=== PATIENT | female | born 1945 | race Caucasian/White ===

== ENCOUNTER 2017-08-21 00:07 | Inpatient (IN) | payer OTHER, MEDICARE ==
[2017-08-21] VITALS (8 sets, daily range): BP systolic 106–143; BP diastolic 51–73
[~2017-08-21] VITALS: Ht 160 cm; Wt 56.7 kg
--- NOTE | 2017-08-21 00:50 | NUR ---
PT PRESENTS TO THE ED VIA [facility] WITH A C/O ALOC POST CONSUMING AN UNKOWN AMOUNT OF BENEDRY AT AN UNKNOWN TIME TODAY. THE MOTHER REPORTS WHEN SHE CAME HOME FROM WORK AT 2200 THAT ROUGHLY 40 PILLS WERE MISSING FROM THE BENEDRYL BOTTLE, THE PT WAS FOUND ON THE FLOOR, AWAKE AND ALERT. THE PT IS AAO X4, SPEACH IS GARBLED BUT PER FAMILY THIS IS NORMAL. THE PT SHOWS GENERAL WEAKNESS AND IS UNABLE TO STAND ON HER OWN WITHOUT ASSISTANCE. RESP ARE EVEN AND UNLABORED, PT DENIES ANY PAIN.
[2017-08-21 00:56] LABS: PLATELET COUNT 192 x10^3mcL (130-400); RED CELL DISTRIBUTION WIDTH 13.9 % (11.5-14.5)
[2017-08-21 00:58] LABS: BASOPHIL % 0 % (0-2)
[2017-08-21 01:15] LABS: ALKALINE PHOSPHATASE 59 U/L (46-116); ALT/SGPT 23 U/L (14-59); AST/SGOT 24 U/L (15-37); BILIRUBIN TOTAL 0.66 mg/dL (0.20-1.00); CALCIUM 8.1 mg/dL (8.5-10.1); CARBON DIOXIDE 23.2 mmol/L (21-32); CHLORIDE SERUM 89 mmol/L (98-107); CREATININE SERUM 0.5 mg/dL (0.6-1.0); GFR1 > 60 mL/min; GLUCOSE SERUM 107 mg/dL (74-106); TOTAL PROTEIN, SERUM 6.5 g/dL (6.4-8.2)
[2017-08-21 01:16] LABS: ALBUMIN 3.1 g/dL (3.4-5.0)
[2017-08-21 01:18] LABS: SODIUM SERUM 122 mmol/L (136-145)
--- NOTE | 2017-08-21 01:18 | NUR ---
ASSISTED PT ONTO BED [place]
--- NOTE | 2017-08-21 02:26 | NUR ---
PT TO CT SCAN
--- NOTE | 2017-08-21 02:45 | NUR ---
PT AWAKE ALERT AND ORIENTED, RESP EVEN AND UNLABORED. NO ACUTE DISTRESS NOTED. FAMILY AT BEDSIDE. PT DENIES ANY NEEDS AT THIS TIME.
--- NOTE | 2017-08-21 02:46 | NUR ---
PROVIDED WITHN WARM BLANKET
--- NOTE | 2017-08-21 04:03 | NUR ---
PATIENT CAME FROM ER,PUT IN ROOM 204 A.MADE COMFORTABLE.
--- NOTE | 2017-08-21 04:05 | NUR ---
NEW NAME BAND APPLIED,TELE 32 ST.PATIENT ASSISTED TO RESTROOM,FLIGHT LINE MECHANIC HELP,NOT STEADY ON HER FEET,GARBLED SPEECH.DAUGHTER AT BEDSIDE,DR LO AT BEDSIDE.INTERVIEWING PATIENT.Adrien VEGA WILL ADMIT PATIENT.
--- NOTE | 2017-08-21 04:41 | NUR ---
RECEIVED PATIENT FROM ED VIA GUERNEY, PATIENT A/O X 2 CONFUSED AT TIMES, DAUGHTER AT BEDSIDE, TELE # 32 SR, IV ACCES TO LAC WNL, C/O PAIN TO ABD WILL MEDICATE ORDERED, ORIENTED PATIENT TO ROOM AND SURROUNDINGS, BED IN LOW POSITION, BED RAILS UP X 2, CALL LIGHT WITHIN REACH, WILL ENDORSE CARE TO PRIMARY NURSE BENNIE RIVERA
--- NOTE | 2017-08-21 04:52 | NUR ---
PATIENT UA SENT TO LAB,CLEAR YELLOW URINE.PATIENT WANT HER DAUGHTER WITH HER AT BEDSIDE.
--- NOTE | 2017-08-21 05:10 | NUR ---
DR LO MADE AWARE OF LACTIC ACID.
[2017-08-21 06:14] LABS: UA SPECIFIC GRAVITY <=1.005 (1.005-1.035); microscopic required? YES; urine erythrocyte 1+ (NEGATIVE)
--- NOTE | 2017-08-21 07:10 | NUR ---
PT SEEN ALERT, ORIENTED X 2, GARBLE SPEECH. PT NO COMPLAIN OF PAIN AT THIS TIME. PT BREATHING ON RA, EVEN, UNLABORED. IV SITE PATENT, INTACT. IVF INFUSING WELL.
[2017-08-21 08:38] LABS: CHOLESTEROL/HDL RATIO 1.6; MAGNESIUM 1.2 mg/dL (1.8-2.4)
[2017-08-21 08:39] LABS: T3 TOTAL 1.1 ng/mL
[2017-08-21 08:40] LABS: FREE T4 1.36 ng/dL (0.76-1.46); FREE THYROXINE INDEX 3.2 ug/dL (1.4-4.5)
--- NOTE | 2017-08-21 09:41 | NUR ---
UNABLE TO DO ECHO PT UP TO BATHROOM W/HELP.
[2017-08-21 11:12] LABS: CALCIUM 8.6 mg/dL (8.5-10.1); CHLORIDE SERUM 98 mmol/L (98-107); CREATININE SERUM 0.5 mg/dL (0.6-1.0); GFR1 > 60 mL/min; GLUCOSE SERUM 144 mg/dL (74-106); POTASSIUM SERUM 3.4 mmol/L (3.5-5.1); SODIUM SERUM 130 mmol/L (136-145)
--- NOTE | 2017-08-21 12:47 | NUR ---
DUCOLAX SUPP GIVEN PER ORDER. PT TOLERATED WELL. XANAX GIVEN PER ORDER.
--- NOTE | 2017-08-21 13:08 | NUR ---
CALLED AND MADE DR. BEAL AWARE PT'S K3.4, MG 1.2, PHOS 2.0, AND UA POSITIVE FOR [place] AND BLOOD.
--- NOTE | 2017-08-21 18:45 | NUR ---
PT REPORTED ANXIOUS AND REQUEST XANAX. WILL GIVE MED PER ORDER. PT BREATHING ON RA, EVEN, UNLABORED. IV SITE PATENT, INTACT. IVF INFUSING WELL.
--- NOTE | 2017-08-21 19:37 | NUR ---
SHIFT REASSESSMENT DONE.PATIENT ALERT AND ORIENTED,GARBLED SPEECH,NEEDS ANTICIPATED.FAMILY AT BEDSIDE,SUPPORTIVE OF CARE.PATIENT JUST HAD DULCOLAX SUPP.ROOM AIR.GEN WEAKNESS.AMBULATE WITH ASSIST.NS AT 100 CC/ HOUR LAC.TELE 32 SR./ST.SKIN INTACT.SCD ORDERED.VOIDING BRP ASSIST.WILL HAVE ATIVAN TONIGHT RTC Q 8 HOURS.BED ALARM ON FOR SAFETY.CALL LIGHT IN REACH.
--- NOTE | 2017-08-21 22:40 | NUR ---
PATIENT GIVEN ALL PM MEDS.GRAND SON AT BEDSIDE FOR TONIGHT.CALL LIGHT IN REACH.
--- NOTE | 2017-08-22 00:14 | NUR ---
GRANDSON REMINDED HE CAN STAY,ASSIST WITH ADLS OF GRANDMA,NOT TO SLEEP ALSO IN THE OTHER BED.PATIENT CHECKED AT INTERVALS,DENIES PAIN.
--- NOTE | 2017-08-22 03:07 | NUR ---
NEW IV SITE LEFT UPPER ARM 20 GUAGE WITH GOOD BLOOD RETURN,IVF CONNECTED.NS AT 100 CC/ HOUR.
[2017-08-22 06:08] VITALS: BP 130/59
--- NOTE | 2017-08-22 06:11 | NUR ---
PATIENT ATIVAN PO GIVEN,WANTING HER XANAX,REMINDED IT WILL BE GIVEN NEXT SHIFT.PATIENT IVF NS AT 100 CC/ HOUR.IV SITE STILL INTACT AND PATENT.WILL ENDORSE TO NEXT SHIFT.
[2017-08-22 06:16] LABS: BASOPHIL % 0.4 % (0-2); PLATELET COUNT 167 x10^3mcL (130-400); RED CELL DISTRIBUTION WIDTH 14.2 % (11.5-14.5)
--- NOTE | 2017-08-22 06:26 | NUR ---
DR VIZCAINO SEEN PATIENT NOW,NEW CONSULT.
[2017-08-22 06:38] LABS: CALCIUM 8.1 mg/dL (8.5-10.1); CHLORIDE SERUM 100 mmol/L (98-107); CREATININE SERUM 0.4 mg/dL (0.6-1.0); GFR1 > 60 mL/min; GLUCOSE SERUM 108 mg/dL (74-106); MAGNESIUM 1.6 mg/dL (1.8-2.4); PHOSPHOROUS 2.9 mg/dL (2.5-4.9); POTASSIUM SERUM 3.1 mmol/L (3.5-5.1); SODIUM SERUM 132 mmol/L (136-145)
--- NOTE | 2017-08-22 07:56 | NUR ---
Patient refused echocardiogram due to anxiety-would like to be medicated before having test
--- NOTE | 2017-08-22 08:00 | NUR ---
ALERT AND ORIENTED. HOB SLIGHTLY ELEVATED. BREATHING FREELY ON RA. TELE # 32 ST HR 101. C/O RECTAL PAIN. ADMIN PREP H SUPPOSITORY AND CREAM. REFUSED NORCO. NS INFUSING 100 CC HOUR. MINIMAL ASSIST WITH ADL'S. GOOD APPETITE WITH BREAKFAST. GRANDSON AT BEDSIDE. CALL LIGHT WITHIN REACH.
[2017-08-22 08:59] VITALS: BP 116/54
[2017-08-22 12:12] VITALS: BP 127/58
--- NOTE | 2017-08-22 14:11 | NUR ---
Echo pending patient with tray
[2017-08-22 15:07] LABS: IRON 36 ug/dL (50-170)
[2017-08-22 15:13] LABS: TOTAL IRON BINDING CAPACITY 136 ug/dL (250-450)
[2017-08-22 15:16] LABS: RED BLOOD CELLS 2.66 M/mm3 (4.10-5.10)
--- NOTE | 2017-08-22 15:48 | NUR ---
Initial Nutrition Assessment Dx: NSTEMI, Hyponatremia PMHx: HTN, anxiety, depression PSHx:ORIF of left wrist Labs: (08/22) Na:132L, BH, BUN:4L, Cr:0.4, M.6L, Troponin:0.609H, H/H:9/27L (08/21) HDL:65H, A1c:6H, Meds: Colace, Dulcolax, Folic acid, Humulin, K-Phos, Magnesium oxide, ND IV, Theragran, Zofran, Diet:CCHO PO Intake:(08/22) B:refused. L:40% D:100% Ht: 63in, 5'3" Wt:128 #, 58.11kg BMI: 22.7kg/m2 (normal weight) IBW: 115#, 52kg %IBW: 111% UBW:168# per pt's grandson Age:72y/o female Food Allergies:NKFA Skin:intact Buddy:21 Edema:None GI: active bowel sounds.Last BM:08/21 Nursing Trigger: unintentional wt loss>10# in past month, admitted with potential risk diagnosis, poor PO intake>3days and unable to ingest diet for age. Pt was admitted with disorder of ANS with unwitnessed ground level fall, EtOH, possible drug OD and possible tyle II VA, Trop:0.884, N-STEMI elevation on EKG, per H&P. Per bed huddle this morning, pt has a consult with Dr. Orozco and troponin is trending down. Pt will also have a GI consult due to hemorrhoids. During visit, observed pt laying in bed with family at bedside. Pt was confused so RD spoke to pt's grandson who is familair with grandmother's medical history. Per pt's granson, pt has had about 40# unintentional wt loss within the past year, pt is a very picky eater and does not like fruits, vegetables and eggs. Throughtout RD interview pt kept interuppting asking if she could have [id number] and kept insisting she was not diabetic. RD assured pt and family she was pre-diabetic and provided verbal diet education. Pt's family wanted to add supplements due to pt's pickiness and poor PO intake. Spoke to Dr. Gonzalez and doctor agreeable and input orders. Problem with: N: No V:No D:No C:No Problems with: Chewing: pt with missing teeth but cruz no issues chewing and declined mechanical soft chopped diet. Swallowing: No Current appetite: good, pt is a picky eater Recent wt change:-40# within the past year %wt change:12% severe Vitamin/Supplement use:No Special diet at home:Pt eats a [id number], spam, frozen burritos. Pt likes salty food per grandson. Physical activity:No Education: Provided verbal diet education on general healthy diet and adding supplements to pt's diet due to poor PO intake. Provided pt's family with coupons for Boost. Estimated Nutritional Needs Based on actual body weight 58 kg Energy: 1450-1740kcal/d (25-30kcal/kg for geriatric maintenance) Protein:58-70 g/d (1-1.2g/kg forgeriatric maintenance) Fluid:6768-1638 ml/d (1 ml/kcal) or per doctor Nutrition Diagnosis 1. Unintentional wt loss secondary to poor PO intake prior possibly secondary to heavy alcohol use and pt picky with food as evidenced by 40# wt loss in the past year. Intervention 1.Recommend adding Boost Plus TID between meals (provides 1080 kcal and 42g pro) to help with PO intake. Monitor/Evaluate Goal: PO intake at least 75% of estimated needs from meals and snacks Monitor: PO intake, Labs, GI function F/U in 3-5 days as moderate risk:08/25-7
--- NOTE | 2017-08-22 15:54 | NUR ---
1.Recommend adding Boost Plus TID between meals (provides 1080 kcal and 42g pro) to help with PO intake.
[2017-08-22 17:09] VITALS: BP 120/51
--- NOTE | 2017-08-22 19:25 | NUR ---
RECEIVED PT LAYING IN BED WITH SISTER AND GRANDSON AT BEDSIDE. PT SPEECH IS GARBLED AND SHE TENDS TO CHANGE SUBJECT FRQUENTLY. OTHERWISE, SHE IS A/O X4. PT IS ANXIOUS AND APPREHENSIVE. PT IS ON TELE #32, NSR AT 84. PT DENIES CHEST PAIN. BILAT PERIPHERAL PULSES ARE PALPABLE. NO SIGNS OF EDEMA NOTED. SCD IN PLACE. PT IS BREATHING ON RA, O2 SAT 97%. PT DENIES SOB. PT DOES NOT APPEAR TO BE IN ANY RESP DISTRESS. BREATHING EVEN AND UNLABORED. LAST BM WAS TODAY, WATERY DIARRHEA. PT IS ON BOWEL PREP FOR COLONOSCOPY SCHEDULED TOMORROW AM. ABD IS ROUND AND SOFT WITH ACTIVE BOWEL SOUNDS. PT DENIES N/V. PT IS ABLE TO FREELY VOID URINE. PT DOES HAVE BRP WITH ASSIST. PT HAS GENERALIZED WEAKNESS. AMBULATORY WITH ASSIST. SKIN IS DRY AND INTACT WITH NO ECCHYMOSIS OR REDNESS NOTED. PT DENIES PAIN AT THIS TIME IV SITE TO L UPPER ARM INFUSING FLUIDS PER DOCTOR'S ORDER. IV SITE IS DRY, PATENT, AND INTACT. ROOM ID FREE OF SAFETY HAZARDS. BED IN LOWEST POSITON WITH SIDE RAILS UP X2. CALL LIGHT WITHIN REACH. WILL CONTINUE TO MONITOR
--- NOTE | 2017-08-22 19:26 | NUR ---
ON GOING BOWEL PREP. WATERY STOOLS. PT DROWSY AFTER RECEIVING MORPHINE FOR RECTAL PAIN. CONSENTS SIGNED BY TIFFANY,PTS GRANDSON PER PTS REQUEST. STOOL SENT TO LAB TO CK FOR C DIFF. NPO AFTER MN FOR COLONOSCOPY IN AM. D5NS & 20K INFUSING 80 CC HOUR. RECEIVED KRIDER AND MAG RIDER. CONTINUES ON LEVAQUIN IV ABX. ASSIST W BRP. CALL LIGHT WITHIN REACH. FAMILY AT BEDSIDE. PT RESISTIVE TO WEARING SCD'S.
--- NOTE | 2017-08-22 20:43 | NUR ---
PT HAD EPISODE OF VOMITING. PT C/O OF NAUSEA AT THIS TIME. MEDICATED WITH PRN ZOFRAN. WILL CONTINUE TO MONITOR
[2017-08-22 21:25] VITALS: BP 124/47
--- NOTE | 2017-08-22 23:24 | NUR ---
PT VOMITTED A LITTLE BIT OF BLACK FLUID INTO EMESIS BAG. DR. BRIONES MADE AWARE, ORDERED PT NPO. INFORMED PT, SHE UNDERSTANDS AND AGREES. WILL CONTINUE TO MONITOR
--- NOTE | 2017-08-23 01:42 | NUR ---
PT IS LAYING IN BED WITH EYES CLOSED WITH GRANDSON AT BEDSIDE. PT DOES NOT APPEAR TO BE IN DISTRESS AT THIS TIME. CALL LIGHT WITHIN REACH. WILL CONTINUE TO MONITOR
--- NOTE | 2017-08-23 03:40 | NUR ---
PT HAD EPISODE OF VOMITTING DARK BROWN/BLACK LIQUID. DR. BRIONES MADE AWARE. PT MEDICATED WITH PRN ZOFRAN. WILL CONTINUE TO MONITOR
--- NOTE | 2017-08-23 05:04 | NUR ---
PT STATED HER SLEEP WAS OFF AND ON. SHE WAS FINALLY ABLE TO GET SOME REST AFTER PRN XANAX DOSE. PT WAS ABLE TO COMPELTELY CONSUME THE ORDERED DOSE OF BOWEL PREP FOR ORDERED COLONOSCOPY THIS AM. NO SIGNIFICANT CHANGES TO REPORT. PT COMPLIED WITH NURSING CARE THROUGHOUT THE NIGHT. PT REMAINED ANXIOUS AND APPREHENSIVE AT TIMES. PT HAS REMAINED NPO SINCE 2314 LAST NIGHT. ROOM IS FREE OF SAFETY HAZARDS. BED IN LOWEST POSITION WITH SIDE RAILS UP X2. GRANDSON AT BEDSIDE. CALL LIGHT WITHIN REACH. WILL ENDORSE CARE TO DAY NURSE.
[2017-08-23 06:19] LABS: PLATELET COUNT 254 x10^3mcL (130-400)
[2017-08-23 06:33] LABS: CALCIUM 8.3 mg/dL (8.5-10.1); CARBON DIOXIDE 26.3 mmol/L (21-32); CHLORIDE SERUM 107 mmol/L (98-107); CREATININE SERUM 0.8 mg/dL (0.6-1.0); GFR1 > 60 mL/min; GLUCOSE SERUM 244 mg/dL (74-106); MAGNESIUM 3.2 mg/dL (1.8-2.4); PHOSPHOROUS 4.1 mg/dL (2.5-4.9); POTASSIUM SERUM 3.9 mmol/L (3.5-5.1); SODIUM SERUM 141 mmol/L (136-145)
--- NOTE | 2017-08-23 06:36 | NUR ---
GAVE REPORT TO MIGUEL STEEL, IN GI LAB.
[2017-08-23 06:40] LABS: BASOPHIL % 0 % (0-2); RED CELL DISTRIBUTION WIDTH 14.7 % (11.5-14.5)
--- NOTE | 2017-08-23 06:53 | NUR ---
WBC 14.1. PAGE GATE DR. BRIONES AND MADE HER AWARE
--- NOTE | 2017-08-23 07:24 | NUR ---
BED SIDE REPORT DONE. ENDORSED CARE TO DAY NURSE, MIGUEL OLEARY.
[2017-08-23 08:30] VITALS: BP 160/72
--- NOTE | 2017-08-23 08:50 | NUR ---
PATIENT GOING DOWN FOR COLONOSCOPY. CONSENTS IN CHART. PATIENT HEPLOCKED AND GOING VIA [facility] ACCOMPANIED BY AFUA AND MERRICK ALLEN. NO SIGN OF ACUTE DISTRESS.
[2017-08-23 09:00] VITALS: BP 173/77
--- NOTE | 2017-08-23 09:30 | NUR ---
PER CHARGE NURSE, PATIENT COMING BACK FROM GI LAB. COLONOSCOPY NOT DONE, PER DR MATIAS DUE TO KUB RESULTS. NEW ORDERS PLACED FOR CT ABD WITH ORAL/IV CONTRAST. WILL FOLLOW UP.
[2017-08-23 12:00] VITALS: BP 156/70
--- NOTE | 2017-08-23 14:26 | NUR ---
PATIENT GOING DOWN TO RADIOLOGY FOR CT SCAN ABD.
[2017-08-23 17:00] VITALS: BP 146/59
--- NOTE | 2017-08-23 17:03 | NUR ---
RECEIVED FROM CATERINA FROM CT, RESULT OF PT CT SCAN ABD/PELVIS WHICH I RELAYED RESULT TO (RESIDENT) ASSIGNED TO THIS PT AND SAID SHE IS INFORMING POLLY ELDRIDGE OF RESULT AT THIS TIME. ANIRUDH RIVERA ASSIGNED TO THIS PT MADE AWARE OF ABOVE.
--- NOTE | 2017-08-23 17:35 | NUR ---
PSYCH DR MINOR AT BEDSIDE EVALUATING PATIENT WITH GRANDSON AT BEDSIDE.
--- NOTE | 2017-08-23 17:35 | NUR ---
PSYCH DR CABRERA AT BEDSIDE EVALUATING PATIENT WITH GRANDSON AT BEDSIDE.
--- NOTE | 2017-08-23 19:11 | NUR ---
NEW ORDERS RECEIVED FROM RESIDENT PER DR MATIAS TO CONTINUE BOWEL PREP WITH MOVIPREP AND SOAP SUDS (FOR COLONOSCOPY IN AM). ALSO FOR PATIENT TO BE NPO AT MIDNIGHT. ENDORSED TO NOC NURSE.
--- NOTE | 2017-08-23 19:20 | NUR ---
RECEIVED PT LAYING IN BED WITH GRANDSON AT BEDSIDE. SHE IS ANXIOUS AND APPREHENSIVE, ASKING FOR XANAX DOSE. PT IS A/O X4. SPEECH IS GARBLED AND MUMBLED. SHE FREQUENTLY CHANGES SUBJECT. PT IS ON TELE MONITOR #32, NSR, RATE 95. PT DENIES CHEST PAIN. BILAT PERIPHERAL PULSES ARE PALPABLE. NO EDEMA NOTED. SCD IN PLACE. PT IS BREATHING ON RA, LUNG SOUNDS CTA. PT DENIES SOB. PT DOES NOT APPEAR TO BE IN RESP DISTRESS. PT BREATHING EVEN AND UNLABORED. PT LAST BM WAS TODAY, BROWN, WATERY DIARHHEA. ABD IS ROUND AND SOFT WITH ACTIVE BOWEL SOUNDS. PT STATES SHE HAS SLIGHT NAUSEA BUT REFUSES MEDICATION AT THIS TIME. PT IS ABLE TO FREELY VOID URINE. PT IS AMBULATORY WITH ASSIST, GENERALIZED WEAKNESS. SKIN IS DRY AND INTACT. PT DENIES AT PAIN AT THIS TIME. IV FLUIDS INFUSING IN PARTHA PER DOCTOR'S ORDERS. IV SITE IS DRY, PATENT, AND INTACT. ROOM IS FREE OF SAFETY HAZARDS. BED IN LOWEST POSITION WITH SIDE RAILS UP X2. GRANDSON AT BEDSIDE. CALL LIGHT WITHIN REACH. WILL CONTINUE TO MONITOR
[2017-08-23 21:01] VITALS: BP 97/37
--- NOTE | 2017-08-23 22:13 | NUR ---
PT VOMITTED. GIVEN ZOFRAN PRN. WILL CONTINUE TO MONITOR
--- NOTE | 2017-08-23 23:52 | NUR ---
PT C/O PAIN AT THIS TIME IN RECTAL AREA. MEDICATED WITH MORPHINE PRN. WILL CONTINUE TO MONITOR
[2017-08-24] VITALS (11 sets, daily range): BP systolic 102–165; BP diastolic 53–70
--- NOTE | 2017-08-24 01:07 | NUR ---
PT IS LAYING IN BED WITH EYES CLOSED AT THIS TIME. DOES NOT APPEAR TO BE IN ANY DISTRESS. GRANDSON AT BESIDE. WILL CONTINUE TO MONITOR
--- NOTE | 2017-08-24 04:25 | NUR ---
SOAP SUDS ENEMA DONE. PT NOT ABLE TO TOLERATE HOLDING IN FLUID. WILL CONTINUE TO MONITOR
--- NOTE | 2017-08-24 05:47 | NUR ---
PT WAS ABLE TO GET SOMEWHAT OF A GOOD NIGHT'S REST. NO SIGNIFICANT CHANGES TO REPORT THROUGH THE NIGHT. PT COMPLIED WITH NURSING CARE THROUGHOUT THE SHIFT. IV FLUIDS REMAIN INFUSING INTO THE PARTHA PER DOCTOR'S ORDERS. IV SITE PATENT, DRY, AND INTACT. ROOM IS FREE OF SAFETY HAZARDS. BED IN LOWEST POSITION WITH SIDE RAILS UP X2. CALL LIGHT WITHIN REACH. WILL ENDORSE CARE TO DAY NURSE. MERRICK AT BEDSIDE
--- NOTE | 2017-08-24 07:30 | NUR ---
PT RECEIVED AND SEEN. PATIENT IS CURRENTLY SLEEPING IN BED. PATIENT IS EASILY AROUSABLE. PATIENT HAS SOME GARBLED SPEECH. TELE [address] PATIENT HAS MODERATE PULSES BUE AND BLE. PATIENT IS TOLERATING ROOM AIR. NO SOB. PATIENT HAS HAD BOWEL PREP ADMINISTERED DURING NIGHT, WAITING FOR COLONOSCOPY. IV IN PARTHA INFUSING AT 100CC/HR, APPEARS WNL. CALL LIGHT IS WITHIN REACH. PATIENT HAS FAMILY AT BEDSIDE. ALL SAFETY MEASURES IN PLACE. WILL CONTINUE TO MONITOR.
[2017-08-24 07:36] LABS: CALCIUM 8.5 mg/dL (8.5-10.1); CARBON DIOXIDE 27.9 mmol/L (21-32); CREATININE SERUM 1.1 mg/dL (0.6-1.0); POTASSIUM SERUM 3.4 mmol/L (3.5-5.1)
[2017-08-24 08:11] LABS: PLATELET COUNT 333 x10^3mcL (130-400)
[2017-08-24 08:12] LABS: RED CELL DISTRIBUTION WIDTH 15.5 % (11.5-14.5)
--- NOTE | 2017-08-24 08:16 | NUR ---
PATIENT HAS BEEN TAKEN DOWN FOR COLONOSCOPY. IV CAPPED AT THIS TIME. PATIENT TAKEN DOWN VIA GURNEY.
--- NOTE | 2017-08-24 09:00 | NUR ---
PATIENT RECEIVED FROM OUTPATIENT SURGERY S/P RAPID RESPONSE. PATIENT WAS BEING PREPPED FOR COLONOSCOPY WHEN SHE BECAME UNRESPONSIVE WITH LOW 02 SATS. PATIENT WAS INTUBATED IN OUTPATIENT SURGERY BY DR HOLLINGSWORTH. PATIENT RECEIVED ON UNIT ACCOMPANIED BY ALLEY CH AND JUAN GUARDADO RN. PATIENT INTUBATED WITH 7.5 ETT AT [address] L[address] IN [address] AND PLACED TO LIS PATIENT PREVIOUSLY SUCTIONED OF APPROX. 1200 ML OF SECRETIONS FROM OGT. PATIENT PLACED ON VENT SETTINGS AC MODE RATE 16, VT 400, PEEP 5, FIO2 100%. DR GUERRA, DR JULES AND DR BHATIA ON UNIT WITH RESIDENTS. VITALS AT THIS TIME. SVP PROGRAMMATIC TV 165/70, HR 120, RR 26, O2 SAT 100%. WILL MONITOR PATIENT CLOSELY.
--- NOTE | 2017-08-24 09:10 | NUR ---
INSERTED GOMEZ CATHETER,DRAININED OUT 2000 ML TEA COLOR URINE WITH SEDEMENTS. AT BEDSIDE SEEN THE URINE OUT PUT. OGT TO INTERMITTENT SUCTION DRAINING BROWN COLOR DRAINAGE. PT IS TRYING TO PULL OGT AND ET TUBE. ON BILATERAL SOFT WRIST RESTRAINTS.
--- NOTE | 2017-08-24 09:15 | NUR ---
EXCORIATIONS/REDNESS TO TODD RECTAL AREA AND REDNESS TO PERINEAL AREA. INFORMED ABOUT THAT. APPLYING SOFI.
--- NOTE | 2017-08-24 09:30 | NUR ---
DR MATIAS AT BEDSIDE TO ASSESS PATIENT. PATIENT UPDATE PROVIDED BY DR GUERRA.
[2017-08-24 09:43] LABS: ATYPICAL LYMPH 1 %; BAND NEUTROPHIL 34 % (0-10); BASOPHIL 0 % (0-2); MONOCYTE 6 % (0-7); SEGMENTED NEUTROPHILS 55 % (37-75)
[2017-08-24 09:44] LABS: PLATELET MORPHOLOGY PLATELETS NORMAL; rbc morphology (normal/abnorm) ABNORMAL (NORMAL)
--- NOTE | 2017-08-24 10:02 | NUR ---
SEDATION OF PROPOFOL INITATED AT 5MCG/KG/MIN AT THIS TIME TO ACHIEVE MRSS OF 4. IVF OF 0.45 NS WITH 20 MEQ OF K+ AT 100 ML/HR. WILL CONTINUE TO MONITOR.
--- NOTE | 2017-08-24 10:06 | NUR ---
JESSI CH AT BEDSIDE TO COLLECT SPUTUM CULTURE AND ADJUSTED FIO2 TO 60% ON VENT.
--- NOTE | 2017-08-24 10:43 | NUR ---
PER DR. BARON TO INCREAE PROPOFOL TO 20MCG/KG/MIN.
--- NOTE | 2017-08-24 11:00 | NUR ---
PT TRYING TO PULL LINES. PUT PT ON BILATERAL SOFT RESTRAINTS WITH INSTRUCTION OF CHARGE NURSE.
--- NOTE | 2017-08-24 12:00 | NUR ---
PT TRYING SIT UP AND ANXIOUS. PER INCREASE PROPAFOL TO 25MCG/KG/MIN.
[2017-08-24 12:55] LABS: microscopic required? NO
[2017-08-24 13:15] LABS: UA SPECIFIC GRAVITY 1.015 (1.005-1.035); urine erythrocyte NEGATIVE (NEGATIVE)
--- NOTE | 2017-08-24 13:45 | NUR ---
INSERTING CENTRAL LINE UNDER SUPERVISION OF . CONSENT SIGNED BY POA PT'S DAUGHTER.
--- NOTE | 2017-08-24 15:45 | NUR ---
PT RESPIRATORY RATE IS 24. CHARGE NURSE INCREASE PROPAFOL RATE TO 35.
--- NOTE | 2017-08-24 16:00 | NUR ---
PT HAD LARGE AMOUNT OF WATERY STOOL. INFORMED . PT HAS EXCORATIONS TO TODD RECTAL AREA ALSO.INSERTED RECTAL TUBE PER ORDER.
--- NOTE | 2017-08-24 17:00 | NUR ---
CHARGE NURSE CHANED PROPOFOLE TO 30MCG/KG/MIN.PT IS CALM AND RESTING.
--- NOTE | 2017-08-24 17:15 | NUR ---
Follow-up Nutrition Assessment Dx: Nonstemi, Hyponatremia Labs: (08/24) Na:147H, BH, BUN:19H, Cr:1.1H, Phos:7H, MH, Hgb:11.8L Meds: Cephulac, Diprivan, Dulcolax, Folic acid, K-phos, KCL, Lactinex, Reglan, Protonix, Theragran Diet: NPO Weights: 08/21:128#, 58kg (08/24) unable to obtain due to pt with doctors in room Skin:intact Edema: None Last BM: 08/23 watery stool for bowel prep for colonoscopy Per progress 08/24, pt had a CT of abdomen and pelvis showed possible diffuse colitis, proctitis. Dr. Martinez recommended colonoscopy. When pt was taken down to colonoscopy, nursing noticed she was obtunded. In outpatient surgery vital signs were taken, showed patient to be desaturating. Rapid response was called, patient was intubated and transferred to ICU. The colonoscopy was not performed. OGT was placed and 1200ml of fluid was suctioned out of the stomach. Pt has potentially aspirated the bowel prep. Pt is currently intubated in ICU on propofol drip. During visit, pt was with doctor's at the time. Per RN, pt will be started on TF of Nutren Pulmonary at 30ml/hr . Pt is on 20mcg/kg/min=6.01cb=198xlwm. Estimated Nutritional Needs unchanged from prior assessment:Actual body weight 58kg Ventilator in min/L:9.93 Temperature: 36.4F Energy: 1203kcal/d vs 1450-1740kcal/d ([id number] vs 25-30kcal/kg for vent support) Protein: 70-87g/day (1.2-1.5g/kg for vent support) Fluid: 1450-1740ml/day (1ml/kcal) or per doctor Nutrition Diagnosis 1. Unintentional wt loss secondary to poor PO intake prior to admit possibly secondary to heavy alcohol use and pt picky with food as evidenced by 40# wt loss in the past year. 2. Inadequate oral intake related to s/p intubation secondary to acute respiratory failure as evidenced by no current TF order. Intervention 1. Recommend TF Nutren Pulmonary at goal 10ml/hr increase q4hr to goal 35ml/hr, free water flush 100ml q6hr and Pro Source x 1 daily. This provides 1320kcal, 72gpro and 1057ml free water daily. This meets 110% of caloric needs and 100% of protein needs. Monitor/Evaluate: Previous goal: PO intake to meet>75% est needs with meals and supplements (not met) Goal: TF to meet >75% est needs with tolerance Monitor: TF intake/tolerance, Labs, GI function F/U in 2-3 days as high risk: 08/26-
--- NOTE | 2017-08-24 19:10 | NUR ---
PT IS CALM AND SLEEPING THIS TIME BUT STILL ON AND OFF ATTEMPTING TO PULL LINES. STILL KEEPING THE SOFT WRIST RESTRAINTS ON. STABLE. GAVE REPORT TO NEXT SHIFT NURSE. PROPOFOLE 30 MCG/KG/MIN.
--- NOTE | 2017-08-24 19:25 | NUR ---
REPORT TAKEN FROM CAROL ANN, ALL CARE ENDORSSED
--- NOTE | 2017-08-24 19:30 | NUR ---
PT IS INTUBATED AND SEDATED WITH PROPOFOL AT 30MCG/KG/MIN. MRSS 4, LUNG SOUND WITH FINE CRACKLES TO RUL, VENTED WITH AC MODE VT 400, R 16, PEEP 5, FIO2 35% PT SAT AT TIME 100%. ETT SECURED TO OGT. RIJ CENTRAL LINE INTACT. NO EDEMA NOTED. SCD'S IN PLACE. SR, ABD IS SOFT AND ROUND. BOWEL SOUND HYPERACTIVE X4Q, RECTAL TUBE, NPO. EXCORIATION TO TODD/ANAL AREA, Z- GUARD APPLY. GOMEZ IN PLACE DRAIN WITH YELLOW COLOR URINE. REPOSITION PER PROTOCOL. SOFT WRIST RESTRAIN TE BUE, ROM PER PROTOCOL.SAFETY IN PLACE. OPEN VIEW TO NURSE. WILL CONTINUE TO MONITOR.
[2017-08-25] VITALS (19 sets, daily range): BP systolic 100–155; BP diastolic 45–64
--- NOTE | 2017-08-25 00:30 | NUR ---
REASSESSMENT IS COMPLETED CHARTING, PT IS INTUBATED AND SEDATED WITH PROPOFOL AT 30MCG/KG/MIN. MRSS4. VENTED WITH AC MODE VT 400, R 16, PEEP 5, FIO2 35% PT SAT 99%. NPO. EXCORIATION TO TODD/ANAL AREA. NO CHANGE, Z- GUARD APPLY. SCD'S SAFETY IN PLACE, FAMILY AT PT BEDSIDE, WILL CONTINE TO MONITOR.
--- NOTE | 2017-08-25 04:00 | NUR ---
PT IS INTUBATED AND SEDATED WITH PROPOFOL AT 30MCG/KG/MIN. MRSS 4. ORAL CARE DONE PER PROTOCOL, GOMEZ CARE COMPLETED. REPODITION Q 2 HRS WITH PILLOWS TO ALLEVIATED PRESSURE POINTS. SOFT WRIST RESTRAIN TO BUE, ROM PER PROTOCOL. BATH GIVEN. RECTAL DRAIN GOOD AMOUNT OF WATERY STOOL. SCD'S IN PLACE. OPEN VIEW TO NURSE.WILL CONTINUE TO MONITOR.
--- NOTE | 2017-08-25 05:19 | NUR ---
DR GUERRA IN UNIT, UPPDATED ON PT'S STATUS, DR GUERRA AT PT BEDSIDE ASSESS PT.
[2017-08-25 05:36] LABS: BASOPHIL % 0.1 % (0-2); PLATELET COUNT 203 x10^3mcL (130-400)
--- NOTE | 2017-08-25 05:40 | NUR ---
CXR IS COMPLETED
[2017-08-25 05:50] LABS: CALCIUM 7.8 mg/dL (8.5-10.1); CARBON DIOXIDE 27.3 mmol/L (21-32); MAGNESIUM 2.5 mg/dL (1.8-2.4); PHOSPHOROUS 3.5 mg/dL (2.5-4.9); POTASSIUM SERUM 3.3 mmol/L (3.5-5.1)
--- NOTE | 2017-08-25 07:10 | NUR ---
REPORT GIVEN TO DAVE, ALL CARE ENDORSSED
--- NOTE | 2017-08-25 07:55 | NUR ---
REPORT GIVEN AT THIS TIME TO DR BARON. WILL VERIFY WITH DR MATIAS AND INITIATE TUBE FEEDINGS IF INDICATED.
--- NOTE | 2017-08-25 08:01 | NUR ---
DR. BARON STARTED THE PT ON CPAP TRIAL AT 0800.
--- NOTE | 2017-08-25 08:30 | NUR ---
PT PLACED BACK ON AC MODE AT THIS TIME. PT IS TACHYPNEIC AT 32 AND TACHYCARDIC AT 128. PROPOFOL REINITIATED AT 30MCG/KG/MIN.
--- NOTE | 2017-08-25 08:33 | NUR ---
DR PHAM AT BEDSIDE TO ASSESS PT.
--- NOTE | 2017-08-25 08:50 | NUR ---
DR CASSIDY AND RESIDENTS ROUNDING AT THIS TIME. UPDATES PROVIDED. NEW ORDERS TO BE PLACED.
--- NOTE | 2017-08-25 08:57 | NUR ---
PHYSICIANS NOTIFIED OF K LEVEL, NO NEW ORDERS RECEIVED.
--- NOTE | 2017-08-25 10:02 | NUR ---
DR MATIAS CALLED UNIT AT THIS TIME. UPDATES PROVIDED. NEW ORDERS RECEIVED.
--- NOTE | 2017-08-25 10:22 | NUR ---
PT REMAINS TACHYCARDIC AT 114, ATTEMPTING TO CHEW ON ETT. PT'S PROPOFOL INCREASED BACK UP TO 35MCG/KG/MIN.
--- NOTE | 2017-08-25 13:22 | NUR ---
XRAY TECHNICIANS ARRIVED TO PERFORM KUB ON PT. WILL CONTINUE TO PERFORM CARE PER PROTOCOL.
--- NOTE | 2017-08-25 13:55 | NUR ---
DR GODOY IN TO SEE PT AT THIS TIME, UPDATES PROVIDED. NO NEW ORDERS RECEIVED.
--- NOTE | 2017-08-25 14:00 | NUR ---
DR MATIAS CALLED UNIT AT THIS TIME. UPDATES PROVIDED. NO NEW ORDERS RECEIVED.
--- NOTE | 2017-08-25 14:59 | NUR ---
GI TEAM AT BEDSIDE FOR COLONOSCOPY. FIO2 TITRATED TO 100% ON VENT FOR PROCEDURE. MARIIA CH MADE AWARE.
--- NOTE | 2017-08-25 15:05 | NUR ---
DR MATIAS AT BEDSIDE EXPLAINING COLONOSCOPY PROCEDURE TO PT'S DAUGHTER. CONSENT RECEIVED FOR PROCEDURE.
--- NOTE | 2017-08-25 15:07 | NUR ---
FLEXISEAL REMOVED AT THIS TIME FOR PROCEDURE PREP.
--- NOTE | 2017-08-25 15:10 | NUR ---
DR MATIAS AT BEDSIDE TO START COLONOSCOPY
--- NOTE | 2017-08-25 17:26 | NUR ---
TUBE FEEDING INITIATED AT THIS TIME. NUTREN PULMONARY AT INITIAL RATE OF 10ML/HR WITH FWF 50ML Q6H. WILL MONITOR.
--- NOTE | 2017-08-25 19:00 | NUR ---
RECEIVED PT REPORT FROM MIGUEL HUNTER AND MIGUEL QUIROGA. QUESTIONS AND CONCERNS ADDRESSED.
--- NOTE | 2017-08-25 19:05 | NUR ---
RECEIVED PT LAYING IN BED, HOB AT 30 DEGREES. SEDATED ON PROPOFOL AT 35 MCG/KG/MIN, MRSS OF 5. DOES NOT FOLLOW COMMANDS, UNABLE TO MAKE NEEDS KNOWN. ETT IN PLACE AND SECURED, LL 23, TUBE SIZE 7.5. ETT TO VENT SETTINGS, AC MODE, RATE 16, VT 450, PEEP 5, FIO2 35%. OGT IN PLACE INFUSING NUTRREN PULMONARY AT 10 ML/HR WITH 50 ML F2F Q6H. EVEN AND UNLABORED BREATHING SYMMETRICAL CHEST EXPANSION. NSR NOTED TO CUSTOMER LIAISON, NO S/S OF CHEST PAIN NOTED. NO EDMEA NOTED, SCD'S IN PLACE. ABDOMEN SOFT/ROUN, FLEXISEAL IN PLACE. F/C IN PLACE DRAINING TO GRAVITY, YELLOW COLORED URINE NOTED. SOFT WRIST RESTRAINTS IN PLACE FOR PT SAFETY, TURNED AND REPOSITIONED Q2H. NO CONTRACTURES OR DEFORMITIES NOTED. BED IN LOWEST POSITION FOR PT SAFETY, WILL MONITOR CLOSELY.
--- NOTE | 2017-08-25 20:13 | NUR ---
RT AT BEDSIDE TO ADMINISTER BREATHING TREATMENT.
--- NOTE | 2017-08-25 21:02 | NUR ---
PROPOFOL TITRATED TO 30 MCG/KG/MIN, MRSS OF 5, WILL MONITOR PT CLOSELY.
[2017-08-26] VITALS (17 sets, daily range): BP systolic 103–152; BP diastolic 49–87; Ht 160 cm; Wt 56.7 kg
--- NOTE | 2017-08-26 04:35 | NUR ---
CASEWORKER PROTECTIVE SERVICES AT BEDSIDE FOR MORNING BLOOD DRAW.
--- NOTE | 2017-08-26 05:32 | NUR ---
DR. VIZCAINO AT BEDSIDE, QUESTIONS AND CONCERNS ADDRESSED.
[2017-08-26 05:45] LABS: CALCIUM 7.9 mg/dL (8.5-10.1); CARBON DIOXIDE 22.9 mmol/L (21-32); CHLORIDE SERUM 113 mmol/L (98-107); CREATININE SERUM 0.6 mg/dL (0.6-1.0); GFR1 > 60 mL/min; GLUCOSE SERUM 117 mg/dL (74-106); MAGNESIUM 2.8 mg/dL (1.8-2.4); PHOSPHOROUS 2.1 mg/dL (2.5-4.9); POTASSIUM SERUM 3.5 mmol/L (3.5-5.1); SODIUM SERUM 144 mmol/L (136-145)
[2017-08-26 05:59] LABS: PLATELET COUNT 156 x10^3mcL (130-400)
[2017-08-26 06:02] LABS: RED CELL DISTRIBUTION WIDTH 15.5 % (11.5-14.5)
[2017-08-26 06:28] LABS: BAND NEUTROPHIL 8 % (0-10); METAMYELOCTE 10 % (0-2); MONOCYTE 4 % (0-7); SEGMENTED NEUTROPHILS 71 % (37-75)
[2017-08-26 06:31] LABS: PLATELET MORPHOLOGY LARGE PLATELET SEEN; rbc morphology (normal/abnorm) ABNORMAL (NORMAL)
--- NOTE | 2017-08-26 07:04 | NUR ---
PT REPORT GIVEN TO MIGUEL CRAWFORD. QUESTIONS AND CONCERNS ADDRESSED BEDSIDE.
--- NOTE | 2017-08-26 07:30 | NUR ---
PT IS INTUBATED AND SEDATED ON PROPOFOL @ 30 MCG/KG/MIN TO MRSS = 4. PT AROUSES EASILY TO VOICE. PUPILS ARE 3MM SLUGGISH BILATERALLY. SIZE 7.5 ETT INTACT AND SECURED, 22 @ LL. OGT INTACT AND SECURED. R IJ CVC INTACT, PORTS PATENT ,DRESSING CDI. 1/2 NS W/ 20 MEQ K INFUSING @ 100 CC/HR. ETT TO VENT, AC/VCV: RATE 16, TV 450, PEEP 5, FIO2 35%. PT IS BREATHING EVEN AND UNLABORED. LUNG SOUNDS ARE DIMINISHED BILATERALLY. S1 S2 HEART SOUNDS AUSCULTATED. ABD IS SOFT AND ROUNDED. BOWEL SOUNDS ACTIVE X4Q. OGT INFUSING NUTREN PULM @ 10 CC/HR, TOLERATING WELL, GRV = 0. FLEXISEAL INTACT AND DRAINING WELL. STOOL IS DARK AND WATERY. GOMEZ INTACT AND SECURED, DRAINING VIA GRAVITY, URINE IS YELLOW, FAIR OUTPUT. NO S/SX OF PAIN AT THIS TIME. HOB ELEVATED, BED LOW, SIDE RAILS UP X3, CALL LIGHT IN REACH. WILL CONTINUE TO MONITOR.
--- NOTE | 2017-08-26 08:00 | NUR ---
TUBE FEEDING INCREASED TO 20 CC/HR.
--- NOTE | 2017-08-26 08:30 | NUR ---
PROPOFOL SUSPSENDED AT THIS TIME FOR CPAP TRIAL TODAY.
--- NOTE | 2017-08-26 08:30 | NUR ---
DR MATIAS AT BEDSIDE TO ASSESS PT. UPDATED ON PT STATUS, QUESTIONS ANSWERED.
--- NOTE | 2017-08-26 08:40 | NUR ---
PT PUT ON CPAP AT THIS TIME BY AUBREY RT: PEEP 5, PSV 10, FIO2 35%.
--- NOTE | 2017-08-26 08:40 | NUR ---
Pt PLACED ON PSV 10, PEEP +5, FIO2 35%. VT 545, RR 22, HR 105, BP 134/66. Pt TOLERATING WELL, WILL CONT. TO MONITOR.
--- NOTE | 2017-08-26 09:08 | NUR ---
PATIENT ROUNDS WITH DR. CASSIDY AND RESIDENTS. CHARGE NURSE AND PRIMARY NURSE AT BEDSIDE. UPDATES PROVIDED AND POC DISCUSSED.
--- NOTE | 2017-08-26 12:10 | NUR ---
DR BARON AT BEDSIDE TO ASSESS PT. UPDATED ON PT STATUS, QUESTIONS ANSWERED. DR BARON DISCUSSED POC WITH PT AND PT'S GRANDSON. ORDERS RECEIVED.
--- NOTE | 2017-08-26 15:08 | NUR ---
Follow-up Nutrition Assessment Dx:Non Stemi and Hyponatremia Labs: 08/26: BH, BUN:23H, Ca:7.9L, Phos:2.1L, M.8H, H/H:8.1/24L Meds: Cephulac, Diprivan, Folic acid, Humulin, KCL, Lactinex, Protonix, Reglan, Theragran, B1, Vitamin C, Zofran Current Nutrition Support: TF Nutren Pulmonary @30ml/hr via OGT. FWF:50ml q6hr TF intake:08/26:121ml I/O:08/25: 2370/2750 (-380ml) 08/26:4886/2322 (+2564) Residual:08/26:0ml Weights: 08/21:128#, 08/25:128#, 08/26:135.6# noted with blanets and pillows Skin: excoriation to periarea Edema: None Last BM: 08/26; dark and watery Per progress note 08/26, patient remains intubated and currently off sedation. Colonoscopy was done by Dr. Martinez yesterday which showed severe fecal impaction with proximal ischemic changes in the left colon. Recommend laxatives and supportive care. Ped bed huddle this morning, pt remains intubated, off sedation and on CPAP trials. During visit, observed pt with family at bedside. Pt was intubated, +ETT to vent on CPAP trials, +OGT in place . Per RN, pt tolerating TF with 0ml residuals. TF currently held due to CPAP trials. Spoke to De. Gonzalez on the phone about recommendations and is agreeable and input orders. Estimated Nutritional Needs unchanged from prior assessment:Actual BW:58kg Energy: 1203kcal/day vs 1450/1740kcal/day (PSU 2002b vs 25-30kcal/kg for vent support) Protein: 70-87g/day (1.2-1.5g/kg for vent support) Fluid: 1450-1740ml/day (1ml/kcal) or per doctor Nutrition Diagnosis 1. Unintentional wt loss secondary to poor PO intake prior to admit possibly secondary to heavy alcohol use and pt picky with food as evidenced by 40# wt loss in the past year. 2. Inadequate oral intake related to s/p intubation secondary to acute respiratory failure as evidenced by no current TF order (met, pt started TF 08/26) Intervention 1. Recommend increase Nutren Pulmonary at goal 35ml/hr, free water flush 100ml q6hr and ProSource x 1 daily to better meet pts est needs. This provides 110% of caloric needs and 100% protein needs. Monitor/Evaluate Previous goal: TF to meet>75% est needs with tolerance (not met) Goal: TF to meet>75% est needs with tolerance Monitor: TF intake/tolerance, Labs, GI function F/U in 2-3 days as high risk:08/28-
--- NOTE | 2017-08-26 15:09 | NUR ---
1. Recommend increase Nutren Pulmonary at goal 35ml/hr , free water flush 100ml q6hr and ProSource x 1 daily to better meet pts est needs. This provides 110% of caloric needs and 100% protein needs.
--- NOTE | 2017-08-26 17:00 | NUR ---
PROPOFOL RESUMED @ 10 MCG/KG/MIN.
--- NOTE | 2017-08-26 17:00 | NUR ---
PT PUT ON AC/VCV: RATE 16, TV 450, PEEP 5, FIO2 35%.
--- NOTE | 2017-08-26 19:20 | NUR ---
RECEIVED REPORT FROM TY RIVERA. ALL QUESTIONS AND CONCERNS ADDRESSED. WILL ASSUME PT CARE.
--- NOTE | 2017-08-26 19:40 | NUR ---
PT IS INTUBATED AND SEDATED. PROPOFOL DRIP AT 10 MCG/KG/HR. MRSS 3. PT IS ABLE TO OPEN EYES SPONTANEOUSLY AND WITH VERBAL AND TACTILE STIMULI. PT IS UNABLE TO FOLLOW COMMANDS, UNABLE TO MAKE NEEDS KNOWN. RIJ IN PLACE AND SECURED, DRESSING CDI, ALL PORTS PATENT AND INFUSING WELL. 1/2 NS WITH K+ 20 MEQ AT 60 ML/HR. ETT IN PLACE AND SECURED, ATTACHED TO VENT, 7.5 ETT/23 LL. VENT SETTINGS: AC MODE, FIO2 35%, VT 450, RATE 16, PEEP 5. RHONCHI HEARD TO BILAT UPPER LOBES AND DIMINISHED BREATH SOUNDS HEARD TO BILAT BASES OF LOBES UPON AUSCULTATION. CHEST RISE IS EQUAL AND SYMMETRICAL. ABD IS ROUND AND SOFT. ACTIVE BOWEL SOUNDS X4 QUADRANTS. FLEXI-SEAL IN PLACE, DARK BROWN MATTER NOTED TO COLLECTION BAG. GOMEZ CATHETER IN PLACE, CLEAN AND PATENT, DRAINING YELLOW URINE. SKIN IS WARM AND DRY. TRACE EDEMA NOTED TO BUE. MODERATE PULSES TO BUE AND WEAK PULSES TO BLE. CAP REFILL <3. EXCORIATION NOTED TO TODD-RECTAL AREA. ORAL CARE PROVIDED. HOB AT 30 DEGREES. CALL LIGHT WITHIN REACH. BED IN LOWEST POSITION. BP 115/50, MAP 77, HR 101, TEMP 98.1, RR 16, O2 100%, NO S/S OF PAIN OR DISTRESS NOTED AT THIS TIME. WILL CONTINUE TO MONITOR FOR ANY ACUTE CHANGES.
--- NOTE | 2017-08-26 19:45 | NUR ---
PT RESTLESS, TRYING TO SIT UP IN BED. TITRATED VERSED TO 4 MG/HR. WILL CONTINUE TO MONITOR.
--- NOTE | 2017-08-26 21:39 | NUR ---
PT SHOWING S/S OF RESTLESSNESS BY ATTAEMPTING TO TO LIFT SELF UP IN BED. MRSS 2. PROPOFOL TITRATED TO 20 MCG/KG/HR. WILL CONTINUE TO MONITOR FOR ANY ACUTE CHANGES.
--- NOTE | 2017-08-26 23:30 | NUR ---
PT RESTING IN POSITION OF COMFORT. MRSS 4. WILL CONTINUE TO MONITOR FOR ANY ACUTE CHANGES.
[2017-08-27] VITALS (16 sets, daily range): BP systolic 89–151; BP diastolic 46–81
--- NOTE | 2017-08-27 04:15 | NUR ---
PROVIDED PT WITH BED BATH, LINENS CHANGED AT THIS TIME. CHG WIPES USED, PERFORMED GOMEZ CARE. NO BM NOTED. PT TOLERATED WELL. WILL CONTINUE TO MONITOR FOR ANY ACUTE CHANGES.
[2017-08-27 04:41] LABS: BASOPHIL % 0.1 % (0-2); PLATELET COUNT 162 x10^3mcL (130-400)
[2017-08-27 04:47] LABS: RED CELL DISTRIBUTION WIDTH 15.4 % (11.5-14.5)
[2017-08-27 04:57] LABS: CALCIUM 7.6 mg/dL (8.5-10.1); CHLORIDE SERUM 115 mmol/L (98-107); CREATININE SERUM 0.5 mg/dL (0.6-1.0); GFR1 > 60 mL/min; GLUCOSE SERUM 129 mg/dL (74-106); MAGNESIUM 2.3 mg/dL (1.8-2.4); PHOSPHOROUS 2.3 mg/dL (2.5-4.9); SODIUM SERUM 142 mmol/L (136-145)
--- NOTE | 2017-08-27 07:07 | NUR ---
REPORT GIVEN TO TY RIVERA. UPDATES PROVIDED. WILL ENDORSE PT CARE.
--- NOTE | 2017-08-27 08:02 | NUR ---
PROPOFOL TITRATED OFF AT THIS TIME FOR CPAP TODAY.
--- NOTE | 2017-08-27 08:30 | NUR ---
PT PLACED ON CPAP TRIALS WITH NOTED SETTINGS PSV 12 AND CPAP 5 RN TY AWARE, PT NOTED IN NO RESP DISTRESS DURING CPAP TRIALS, FAMILY AT BED SIDE AND ENCOURAGED TO KEEP CALM AND TAKE DEEP BREATHS.
--- NOTE | 2017-08-27 09:54 | NUR ---
DR. KANG, RESIDENTS, AUTOMATIC GLOVE TURNER AND FORMER AND PRIMARY RN AT BEDSIDE FOR MORNING ROUNDS. PLAN OF CARE DISCUSSED WITH SON AT BEDSIDE. WILL CONT TO MONITOR.
--- NOTE | 2017-08-27 14:42 | NUR ---
DR SIMMONS AT BEDSIDE TO ASSESS PT. UPDATED ON PT STATUS, QUESTIONS ANSWERED. PT PUT ON CPAP: PEEP 5, PSV 8, FIO2 35%. PT TO BE LEFT ON THIS SETTING FOR 30 MINS AND IF TOLERATES, ABG AND WEANING PARAMETERS DONE W/ RESULTS CALLED TO DR SIMMONS.
--- NOTE | 2017-08-27 14:45 | NUR ---
DR. SIMMONS AT BED SIDE TO PLACE PT ON CPAP 5, PSV 8. NEW ORDERS VERBALLY RECEIVED PER DR. SIMMONS TO OBTAIN ABG IN 30 MINUTES AND PERFORM WEANING PARAMETERS PRIOR FOR POSSIBLE EXTUBATION. MIGUEL EPSTEIN.
--- NOTE | 2017-08-27 16:00 | NUR ---
RESTRAINTS REMOVED AT THIS TIME.
--- NOTE | 2017-08-27 16:15 | NUR ---
PT WENT INTO SINUS TACH WHILE ON ALBUTEROL TX. ALBUTEROL TX STOPPED, PT DENIES CP, N/V/D, DIZZINESS. MARIIA CH AND DR GUERRA MADE AWARE. PT IS ASYMPTOMATIC AT THIS TIME.
--- NOTE | 2017-08-27 16:46 | NUR ---
PT EXTUBATED @ 1643 BY MARIIA CH, ROSE STUDENT NURSE, AND MYSELF AT BEDSIDE. PT TOLERATED WELL. PT PUT ON 4L NC.
--- NOTE | 2017-08-27 17:09 | NUR ---
DISCUSSED REINTUBATION IF EVER AGAIN NECCESSARY, EVEN A LIFE SAVING MEASURE, WITH PT AND PT'S GRANDSON AT BEDSIDE. PT EXPRESSED THAT SHE WOULD NOT WANT TO BE INTUBATED AGAIN, EVEN TO SAVE HER LIFE.
--- NOTE | 2017-08-27 17:26 | NUR ---
O2 TITRATED TO 3L NC.
--- NOTE | 2017-08-27 18:14 | NUR ---
PT IS ALERT AND ORENTATED. ON 3L VIA NC. BREATHING IS EQUAL AND NON-LABORED. PT IS RECEIVING 0.45 NS AT 100 ML/HR VIA R IJ. FC IS INTACT AND DRAINING. RECTAL TUBE IS INTACT AND DRAINING VIA GRAVITY. BED LOW. HOB EVLEVATED 30 DEGREES. SIDE RAILS UP X3. CALL LIGHT IN REACH.
--- NOTE | 2017-08-27 18:34 | NUR ---
EDUCATED PT ON INCETIVE SPIROTEMER USE.
--- NOTE | 2017-08-27 19:13 | NUR ---
RECEIVED REPORT FROM TY RIVERA. UPDATES PROVIDED. WILL ASSUME PT CARE.
--- NOTE | 2017-08-27 20:00 | NUR ---
NURSING SWALLOW EVAL DONE. PT ATE CUP OF JELLO WITH NO DIFFICULTY. NO S/S OF PAIN OR DISTRESS NOTED. WILL CONTINUE TO MONITOR FOR ANY ACUTE CHANGES.
--- NOTE | 2017-08-27 20:45 | NUR ---
PT REFUSED MEDICATION. WHEN ASKED WHY PT REFUSES MEDICATIONS, REPLIES "NO". DR MONGE MADE AWARE WILL CONTINUE TO MONITOR FOR ANY ACUTE CHANGES.
--- NOTE | 2017-08-27 21:45 | NUR ---
PT SHOWING S/S OF RESTLESS EVIDENCE BY PULLING ON GOWN, BLANKETS, TOSSING AROUND IN BED. HR AND BP ELEVATED. DR MONGE MADE AWARE. RECEIVED NEW ORDERS. WILL CONTINUE TO MONITOR FOR BRAD CUTE CHANGES.
[2017-08-28] VITALS (8 sets, daily range): BP systolic 127–164; BP diastolic 61–88
--- NOTE | 2017-08-28 04:45 | NUR ---
BED BATH PROVIDED. LINENS CHANGE. TODD CARE PROVIDED. ORAL CZARE PROVIDED. PT REPOSITIONED. PT TOLERATED WELL. WILL CONTINUE TO MONITOR FOR ANY ACUTE CHANGES.
[2017-08-28 06:07] LABS: CALCIUM 7.5 mg/dL (8.5-10.1); CHLORIDE SERUM 113 mmol/L (98-107); CREATININE SERUM 0.3 mg/dL (0.6-1.0); GFR1 > 60 mL/min; GLUCOSE SERUM 106 mg/dL (74-106); MAGNESIUM 1.7 mg/dL (1.8-2.4); PHOSPHOROUS 2.4 mg/dL (2.5-4.9); PLATELET COUNT 173 x10^3mcL (130-400); POTASSIUM SERUM 3.7 mmol/L (3.5-5.1); SODIUM SERUM 145 mmol/L (136-145)
--- NOTE | 2017-08-28 06:10 | NUR ---
RADIOLOGY AT BEDSIDE FOR CXR. PT REFUSES CXR AT THIS TIME. DR GUERRA MADE AWARE.
[2017-08-28 06:31] LABS: RED CELL DISTRIBUTION WIDTH 15.4 % (11.5-14.5)
[2017-08-28 06:32] LABS: BASOPHIL % 0 % (0-2)
--- NOTE | 2017-08-28 08:15 | NUR ---
ATTEMPTED TO FEED PT CRUSHED UP XANAX IN APPLE SAUCE FOR ANXIETY. PT SPAT IT OUT AND STS DIDN'T WANT IT ANYMORE.
--- NOTE | 2017-08-28 09:03 | NUR ---
PT IS REFUSING ALL PO MEDICATION AT THIS TIME.
--- NOTE | 2017-08-28 10:15 | NUR ---
PT IS RESTLESS AND ANXIOUS. 1 MG OF ATIVAN GIVEN IVP. WILL REASSESS.
--- NOTE | 2017-08-28 10:26 | NUR ---
DR. KANG, RESIDENTS, SUPERVISOR PICKING CREW AND PRIMARY RN AT BEDSIDE FOR MORNING ROUNDS. PLAN OF CARE DISCUSSED. WILL CONT TO MONITOR.
--- NOTE | 2017-08-28 14:17 | NUR ---
PT BECOMING MORE FREQUENTLY AGITATED. FOUND OGT WITH TIP HANGING OUT OF PT'S MOUTH. OGT REMOVED.
--- NOTE | 2017-08-28 17:52 | NUR ---
PT ABOUT TO BE TRANSFERED TO 210B. PT'S GRANDSON'S BELONGINGS TAKEN, HE WAS MADE AWARE AND WILL BE VISITING PT UPSTAIRS.
--- NOTE | 2017-08-28 18:30 | NUR ---
PT RECEIVED FROM ICU DROWSY BUT AWAKE AND ALERT.CARE ASSURED.PT SITUATED IN ROOM 210B.NO ACUTE DISTRESS NOTED.ST ON THE MONITOR @ 114BPM.SKIN WARM AND DRY TO TOUCH WITH EXCORIATION ON COCCYX.GOMEZ TO GRAVITY.RECTAL TUBE WITH LIQ.GREENISH STOOL.CALL LIGHT PROVIDED.BED IN LOW SAFE POSITION.
--- NOTE | 2017-08-28 19:50 | NUR ---
REC'D REPORT FROM DAY NURSE FISH. ALERT, AWAKE, AND ORIENTED X2. LAYING IN BED. NO DISTRESS NOTED. TELE# 21. LUNG SOUNDS ARE CTA. NO SOB. BREATHING EVEN AND UNLABORED. ABD FLAT AND ACTIVE. NO EDEMA NOTED. GOMEZ CATHETER IN PLACE DRAINING YELLOW URINE. RECTUM TUBE IN PLACE. IV ACCESS TO THE PARTHA PATENT AND INTACT. RIJ IN PLACE. BED IN LOWEST POSITION. CALL LIGHT WITHIN REACH. WILL PROCEED TO THE PLAN OF CARE.
--- NOTE | 2017-08-28 20:59 | NUR ---
GIVEN PT JELLO TO ASSESS SWALLOWING, WAS ABLE TO TAKE JELLO WITHOUT NO PROBLEM. PT GIVEN SCHEDULE MEDS. TOLERATED ALL MEDS WELL. WILL CONT TO MONITOR.
--- NOTE | 2017-08-28 21:53 | NUR ---
PT IS C/O OF BACK PAIN. WILL MEDICATE PER EMAR.
--- NOTE | 2017-08-29 02:10 | NUR ---
ROUNDS MADE, PT IS SLEEPING WITH EYES CLOSED. NO SOB. BREATHING EVEN AND UNLABORED. NEPHEW AT BEDSIDE. WILL CONT TO MONITOR.
--- NOTE | 2017-08-29 04:26 | NUR ---
ROUNDS MADE, PT IS SLEEPING. NO DISTRESS NOTED. NO SOB. BREATHING EVEN AND UNLABORED. WILL CONT TO MONITOR.
[2017-08-29 05:35] VITALS: BP 108/49
--- NOTE | 2017-08-29 06:37 | NUR ---
PT SLEPT THROUGHOUT THE NIGHT. NO DISTRESS OR SIGNIFICANT CHANGES NOTED. NO SOB. BREATHTING EVEN AND UNLABORED. ALL NEEDS MET AND ATTENDED TO. IV RIJ INTACT AND PATENT. WILL ENDORSE ALL CARE TO ONCOMING NURSE.
[2017-08-29 06:39] LABS: PLATELET COUNT 162 x10^3mcL (130-400)
[2017-08-29 06:51] LABS: CALCIUM 7.1 mg/dL (8.5-10.1); CARBON DIOXIDE 26.4 mmol/L (21-32); CHLORIDE SERUM 108 mmol/L (98-107); CREATININE SERUM 0.3 mg/dL (0.6-1.0); GFR1 > 60 mL/min; GLUCOSE SERUM 111 mg/dL (74-106); MAGNESIUM 2.2 mg/dL (1.8-2.4); PHOSPHOROUS 2.3 mg/dL (2.5-4.9); POTASSIUM SERUM 3.3 mmol/L (3.5-5.1); SODIUM SERUM 141 mmol/L (136-145)
[2017-08-29 07:06] LABS: BASOPHIL % 0 % (0-2)
--- NOTE | 2017-08-29 07:50 | NUR ---
RECEIVED PT IN BED. ASSESSED AND DOCUMENTED. DENIES PAIN THIS TIME. SAFTEY PRECAUTIONS ON. WILL MONITOR. FAMILY AT BEDSIDE.
--- NOTE | 2017-08-29 09:08 | NUR ---
AND RESIDENTS DID ROUNDS. EXPLAINED THE PLAN OF CARE AND ANSWERED ALL PT'S QUESTIONS.
[2017-08-29 09:58] VITALS: BP 136/73
[2017-08-29 13:00] VITALS: BP 142/59
--- NOTE | 2017-08-29 14:17 | NUR ---
S: PATIENT SEEN AT BEDSIDE. SHE WAS ALERT, VERBAL, COOPERATIVE. O: BEDSIDE SWALLOW EVALUATION A: PATIENT PRESENTS WITH EFFICACY OF OROPHARYNGEAL PHASE OF SWALLOW INTACT. NO OVERT S/S OF ASPIRATION WITH P.O. TRIALS CHRONIC/PERSISTENT DRY COUGH WHICH DOES NOT APPEAR TO BE SPECIFICALLY RELATED TO P.O. GOOD APPETITE CLEAR UPPER AIRWAY SOUNDS PRE AND POST SWALLOW PER CERCVICAL AUSCULTATION S/P EXTUBATION ON 08/27 TOLERATING CURRENT DIET WITH NO OVERT S/S OF ASPIRATION. P: SAFE TO ADVANCE TEXTURE TO MECHANICAL SOFT DIET SET UP ASSIST WITH MEALS MEDICATIONS TOLERATED NO FURTHER SKILLED ST SERVICES NEEDED AT THIS TIME. THANK YOU FOR THIS REFERRAL. Emma OSPINA MA/MSLP
--- NOTE | 2017-08-29 14:42 | NUR ---
Follow-up Nutrition Assessment Dx:NON STEMI, Hyponatremia Labs: (08/29) K:3.3L, B, BUN:6L, Cr:0.3L, H/H:8.7/26L, Meds: Humulin, KCL, Lactinex, Neutra-phos, Theragran, Vit C, Zofran Diet: Mechanical soft chopped Weights: 08/26:125#, 08/29: 120# wt loss possibly due to pt with fecal impaction and BM regimen started as well as a rectal bag inserted. Skin: intact Edema: None Last BM: 08/28 Per progress note 08/29, pt with acute respiratory failure secondary to aspiration pneumonia s/p extubation 08/27/17 and disorder of GI colonic ishcemia secondary to fecal impaction. Pt was transferred upstairs to telemetry. Per bed huddle this morning, pt will stay for IV antibiotics and will have a GI consult for removal of rectal bag and siu. Pt also has physical therapy evalutaion. During visit, observed pt laying in bed with grandson at bedside. Per pt's grandson, pt is a very picky eater and ate <50% lunch. Obtained food preferences (soup and mashed potatoes) and offered oral supplements due to pt with poor PO intake. Pt with no c/o N/V/D/C. Estimated Nutritional Needs based on admit wt:58kg Energy: 1450-1740kcal/day (25-30kcal/kg for geriatric maintenance) Protein: 58-70g/day (1-1.2g/kg for repletion) Fluid: 1450-1740ml/day (1ml/kcal) or per doctor Nutrition Diagnosis 1. Unintentional wt loss secondary to poor PO intake prior to admit possibly secondary to heavy alcohol use and pt picky with food as evidenced by 40# wt loss in the past year. 2. Inadequate oral intake related to s/p intubation secondary to acute respiratory failure as evidenced by no current TF order (pt diet advanced to mechanical soft chopped s/p extubation 08/27) Intervention 1. Recommend adding Boost Puls TID betwen meals (provides 1080kcal and 42g pro) to aid with poor PO intake. Monitor/Evaluate Previous goal: TF to meet >75% est needs with tolerance (pt advanced to PO diet) Goal: PO intake at least 75% of estimated needs Monitor: PO intake, Labs, GI function F/U in 3-5 days as moderate risk:09/01-
--- NOTE | 2017-08-29 14:44 | NUR ---
1. Recommend adding Boost Puls TID betwen meals (provides 1080kcal and 42g pro) to aid with poor PO intake.
--- NOTE | 2017-08-29 15:00 | NUR ---
RECTAL TUBE REMOVED PER ORDER.
--- NOTE | 2017-08-29 16:00 | NUR ---
Pt is stable.denies pain this time.
[2017-08-29 17:24] VITALS: BP 151/78
--- NOTE | 2017-08-29 19:11 | NUR ---
REC'D REPORT FROM WILFRED RIVERA. PT IS ALERT, AWAKE, AND ORIENTED X4. LAYING IN BED. NO DISTRESS NOTED AT THIS TIME. TELE #55. LUNG SOUNDS ARE CTA. NO SOB. BREATHING EVEN AND UNLABORED. ABD IS FLAT AND ACTIVE. NO EDEMA NOTED. IV ACCESS TO THE RIJ PATENT AND INTACT. BED IN LOWEST POSITION. CALL LIGHT WITHIN REACH. WILL PROCEED TO THE PLAN OF CARE.
[2017-08-29 20:39] VITALS: BP 149/75
--- NOTE | 2017-08-29 22:25 | NUR ---
PT IS C/O BACK PAIN 06/30. WILL MEDICATE PER EMAR.
--- NOTE | 2017-08-30 00:19 | NUR ---
PT IS AGITATED. WILL MEDICATE PER EMAR.
--- NOTE | 2017-08-30 00:26 | NUR ---
ROUNDS MADE, PT IS CURRENTLY AWAKE. GIVEN ATIVAN 1MG. BREATHING EVEN AND UNLABORED. WILL CONT TO MONITOR.
--- NOTE | 2017-08-30 02:26 | NUR ---
PT IS C/O OF BACK PAIN. WILL MEDICATE PER EMAR.
--- NOTE | 2017-08-30 03:06 | NUR ---
PT IS AGITATED AND CRYING ABOUT GRANDSON LEAVING. PT STATED IF HE LEAVE SHE WOULD . GRANDSON DECIDED TO STAY. CHARGE NURSE AND DR SPRAGUE MADE AWARE. WILL MEDICATE ATIVAN 1 MG PER EMAR.
[2017-08-30 05:37] VITALS: BP 145/70
--- NOTE | 2017-08-30 05:52 | NUR ---
PT SLEPT PERIODICALLY THROUGHT THE SHIFT. NO DISTRESS OR SIGNIFICANT CHANGES NOTED. DENIES PAIN AT THIS TIME. NO SOB. NO N/V. BREATHING AND UNLABORED. ALL NEEDS MET AND ATTENDED TO. IV ACCESS PATENT AND INTACT. WILL CONT TO MONITOR.
--- NOTE | 2017-08-30 06:53 | NUR ---
WILL ENDORSE ALL CARE TO ONCOMING NURSE.
[2017-08-30 07:07] LABS: BASOPHIL % 0.1 % (0-2); PLATELET COUNT 164 x10^3mcL (130-400)
[2017-08-30 07:13] LABS: RED CELL DISTRIBUTION WIDTH 15.3 % (11.5-14.5)
[2017-08-30 07:36] LABS: CALCIUM 7.3 mg/dL (8.5-10.1); CHLORIDE SERUM 106 mmol/L (98-107); CREATININE SERUM 0.3 mg/dL (0.6-1.0); GFR1 > 60 mL/min; GLUCOSE SERUM 95 mg/dL (74-106); MAGNESIUM 1.5 mg/dL (1.8-2.4); PHOSPHOROUS 2.3 mg/dL (2.5-4.9); POTASSIUM SERUM 3.3 mmol/L (3.5-5.1); SODIUM SERUM 137 mmol/L (136-145)
--- NOTE | 2017-08-30 07:45 | NUR ---
RECEIVED PT IN BED. ASSESSED AND DOCUMENTED. DENIES PAIN THIS TIME. SAFTEY PRECAUTIONS ON. WILL MONITOR.
[2017-08-30 10:40] VITALS: BP 149/70
--- NOTE | 2017-08-30 11:00 | NUR ---
SPOKE WITH PT AND HER GRANDSON ABOUT PLAN OF CARE.
[2017-08-30 14:00] VITALS: BP 156/80
--- NOTE | 2017-08-30 15:00 | NUR ---
INFORMED ABOUT BP 156/80. STABLE. PT STRESSING ABOUT SHE DOESNOT WANT GO [facility].INFORMED ABOUT THAT.
--- NOTE | 2017-08-30 15:30 | NUR ---
REMOVED GOMEZ CATHETER AND PREINEAL CARE GIVEN.
--- NOTE | 2017-08-30 16:41 | NUR ---
PHYSICAL THERAPY DAILY NOTES CO-SIGN All documentation done by the Laborer Brush Clearing for 08/30/17 has been reviewed. I agree with the documentation. Reviewed/Co-Signed by: Ariela Galeas PT Documentation Done by:BEATRIZ MOORE EFFICIENCY MINER BLASTING
[2017-08-30] MEDS ORDERED: NIC7 TD (17:46)
[2017-08-30] MEDS ORDERED: FERG PO (17:48)
[2017-08-30] MEDS ORDERED: BAY PO (17:49)
[2017-08-30] MEDS ORDERED: LIPI10 PO (17:49)
[2017-08-30] MEDS ORDERED: ZES10 PO (17:49)
[2017-08-30] MEDS ORDERED: NOR10T PO (17:50)
[2017-08-30] MEDS ORDERED: XAN5 PO (17:50)
--- NOTE | 2017-08-30 17:50 | NUR ---
PT HAD A SMALL BM AND VOIDED TOO. DENIES PAIN.
[2017-08-30] MEDS ORDERED: NPHOS PO (17:51)
[2017-08-30] MEDS ORDERED: KCL20L PO (17:55)
[2017-08-30] MEDS ORDERED: HUMULIN R100 U/1 M1 SC (17:56)
[2017-08-30] MEDS ORDERED: LAC PO (17:56)
[2017-08-30] MEDS ORDERED: VITC PO (17:58)
[2017-08-30] MEDS ORDERED: LEVAQUIN750 MG PO (18:12)
[2017-08-30] MEDS ORDERED: FLA500 PO (18:12)
[2017-08-30 18:34] VITALS: BP 156/80
--- NOTE | 2017-08-30 18:45 | NUR ---
PT BP 160/70. PT ANXIOUS ABOUT SHE DOESNOT WANT TO GO PRISON. PAGE GATED DOCTOR AND INFORMED BP AND SHE IS AWARE ABOUT PT REFUSING SNF. CHARGE NURSE AWARE AND CALLED FAMILY AND INFORMED.FAMILY SAID THEY WILL COME AND TALK TO HER,THEY TRIED TO TALK TO HER THROUGH THE PHONE BUT PT STILL REFUSING. PT IS AWAKE,ALERT AND ORIENTED X3. XANAX PO GIVEN FOR ANXIETY.
--- NOTE | 2017-08-30 19:01 | NUR ---
PT STILL REFUSING SNF AND WAITING FOR FAMILY. CHARGE NURSE AWARE. TRANSPORTATION TIME CHANGED TO 2230 PER CHARGE NURSE. GAVE REPORT TO NEXT SHIFT NURSE.
--- NOTE | 2017-08-30 19:10 | NUR ---
REC'D PT FROM DAY NURSE. SISTER AT BEDSIDE. PT RESTING IN BED. AAOX4, SPEECH CLEAR, FOLLOWS COMMANDS. CONFUSED AT TIMES. ON TELE 55. DENIES CP, DIZZINESS, OR PALPITATIONS. DENIES RESP DISTRESS OR SOB. BREATHING EVEN/UNLABORED ON RA. NO EDEMA NOTED. DENIES ABD PAIN, TENDERNESS, OR N/V. BOWEL SOUNDS ACTIVE. VOIDING WITH SOME INCONTINENCE. GEN WEAKNESS. UP WITH ASSISTA. REDNESS TO PERINEAL/RECTAL/SACRAL AREA. DISCHARGE PICTURES OBTAINED. DENIES PAIN OR DISCOMFORT AT THIS TIME. CENTRAL LINE TO [facility] IN PLACE. SITE WNL. PT TO D/C TO [facility]. [facility] TO PICK PT UP @ 4420. DISCHARGE TEACHING AND PAPERWORK TO BE COMPLETED WHEN DAUGHTER ARRIVES. WILL GIVE REPORT TO [facility] NURSE. CALL LIGHT WITHIN REACH, BED AT LOWEST POSITION. WILL CONTINUE TO MONITOR.
--- NOTE | 2017-08-30 21:00 | NUR ---
PT REPORTS FEELING SOME ANXIETY REGARDING TRANSFER TO SNF. SCHEDULED ATIVAN 1MG PO GIVEN PER ORDER. WILL MONITOR FOR RELIEF.
[2017-08-30 22:01] VITALS: BP 159/72
--- NOTE | 2017-08-30 22:02 | NUR ---
REPORT GIVEN TO FARHANA ALEJANDRE RN OF [facility]. CONFIRMED ACCEPTANCE.
--- NOTE | 2017-08-30 22:16 | NUR ---
DISCHARGE TEACHING COMPLETED. PAPERWORK SIGNED BY DAUGHTER. [facility] TRANSPORT TO INFORMATION TECHNOLOGY TECHNICIAN PT @ 1991
--- NOTE | 2017-08-30 23:21 | NUR ---
CENTRAL LINE REMOVED PER ORDER. FAMILY AT THE BEDSIDE. NO COMPLAINTS AT THIS TIME. VSS. WAITING FOR [facility] TRANSPORT.
--- NOTE | 2017-08-30 23:45 | NUR ---
REPORT GIVEN TO [facility] TO TRANSPORT PT TO [facility]. PT RESTING IN BED. NO SIGNS OF DISTRESS NOTED. BREATHING EVEN/UNLABORED ON RA. PT REPORTS SOME ANXIETY AT THIS TIME BUT FAMILY AT BEDSIDE TO SUPPORT HER. TELE REMOVED PER ORDER. VSS. ALL BELONGINGS WITH PT'S FAMILY. TAKEN DOWN VIA GURNEY.
== END 2017-08-30 23:56 | DRG 246 ==
LOC: ED 00:07 → DU 02:54 → IC 02:54 → DU 04:53 → IC 08-24 08:57 → DU 08-28 17:56
PROVIDERS: Emergency Medicine; Student in an Organized Health Care Education/Training Program; ADMIT Family Medicine Sports Medicine
PROC: 5A1945Z Respiratory Ventilation, 24-96 Consecutive Hours (ICD-10-PCS; principal; 2017-08-24)
PROC: 0BH17EZ Insertion of Endotracheal Airway into Trachea, Via Natural or Artificial Opening (ICD-10-PCS; 2017-08-24)
PROC: 02HV33Z Insertion of Infusion Device into Superior Vena Cava, Percutaneous Approach (ICD-10-PCS; 2017-08-24)
PROC: B5181ZA Fluoroscopy of Superior Vena Cava using Low Osmolar Contrast, Guidance (ICD-10-PCS; 2017-08-24)
PROC: 0DBM8ZX Excision of Descending Colon, Via Natural or Artificial Opening Endoscopic, Diagnostic (ICD-10-PCS; 2017-08-25)
PROC: 0DBK8ZX Excision of Ascending Colon, Via Natural or Artificial Opening Endoscopic, Diagnostic (ICD-10-PCS; 2017-08-25)
DX: K55.039 Acute (reversible) ischemia of large intestine, extent unspecified (principal); J96.00 Acute respiratory failure, unspecified whether with hypoxia or hypercapnia; N17.0 Acute kidney failure with tubular necrosis; J69.0 Pneumonitis due to inhalation of food and vomit; G92 Toxic encephalopathy; E43 Unspecified severe protein-calorie malnutrition; T45.0X1A Poisoning by antiallergic and antiemetic drugs, accidental (unintentional), initial encounter; N39.0 Urinary tract infection, site not specified; E87.8 Other disorders of electrolyte and fluid balance, not elsewhere classified; E87.1 Hypo-osmolality and hyponatremia; E11.9 Type 2 diabetes mellitus without complications; K80.20 Calculus of gallbladder without cholecystitis without obstruction; E87.6 Hypokalemia; F33.1 Major depressive disorder, recurrent, moderate; F41.8 Other specified anxiety disorders; F10.20 Alcohol dependence, uncomplicated; F17.210 Nicotine dependence, cigarettes, uncomplicated; Z68.22 Body mass index [BMI] 22.0-22.9, adult; Y92.018 Other place in single-family (private) house as the place of occurrence of the external cause
CPT/HCPCS: 36556; 36600; 45378; 83880; 84439; 87046; 87046-59; 97110-GP; 97116-GP; 97530-GP; A4628; C9113; G0480; J0330; J1200; J1610; J1642; J1956; J2060; J2250; J2270; J2310; J2405; J2543; J2704; J2765; J2916; J3010; J3475; J3480; J3490; J7030; J7040; J7620; J7644; Q0092; Q9966; Q9967